=== PATIENT | female | born 1975 | race African-American/Black ===

== ENCOUNTER 2018-03-13 10:54 | Inpatient (IN) | payer OTHER ==
[2018-03-13 11:51] VITALS: BMI 23.0
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
[2018-03-13] MEDS ORDERED: IBUPROFEN 400 MG TABLET (FP) PO PRN (14:31)
[2018-03-13] MEDS ORDERED: MAG HYDROX/AL HYDROX/SIMETH 30 ML UNIT-DOSE CUP PO PRN (14:31)
[2018-03-13] MEDS ORDERED: MENTHOL/PHENOL 1 EACH UD MM PRN (14:31)
[2018-03-13] MEDS ORDERED: chlordiazePOXIDE HCL 25 MG CAPSULE PO PRN (14:31)
[2018-03-13] MEDS ORDERED: guaiFENesin/D-METHORPHAN HB 10 ML UNIT-DOSE CUPS PO PRN (14:31)
[2018-03-13] MEDS ORDERED: MAGNESIUM CITRATE 300 ML BOTTLE PO PRN (14:31)
[2018-03-13] MEDS ORDERED: LOPERAMIDE HCL 2 MG CAPSULE PO PRN (14:31)
[2018-03-13] MEDS ORDERED: P-EPHED 60MG/TRIPROLIDI 2.5MG TABLET PO PRN (14:31)
[2018-03-13] MEDS ORDERED: MAGNESIUM HYDROX 2400MG/30ML ORAL SUSPENSION 30 ML CUP PO PRN (14:31)
[2018-03-13] MEDS ORDERED: ACETAMINOPHEN 325 MG TABLET (FP) PO PRN (14:31)
[2018-03-13] MEDS ORDERED: ALBUTEROL SO4 8 GM HFA INHALER IH PRN (14:37)
[2018-03-13] MEDS ORDERED: METHADONE HCL 10 MG TABLET (FOR DETOX USE ONLY) PO ONE ×2 (14:55→23:00)
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
[2018-03-13] MEDS: ESCITALOPRAM OXALATE 20 MG TABLET (FP) PO SCH (16:11)
[2018-03-13 22:16] LABS: URINE APPEARANCE CLOUDY; URINE BILIRUBIN NEGATIVE (<2.0 mg/dL); URINE COLOR AMBER; URINE GLUCOSE (UA) NEGATIVE (NEGATIVE); URINE KETONE NEGATIVE (NEGATIVE); URINE LEUK ESTERASE NEGATIVE (NEGATIVE); URINE NITRITE NEGATIVE (NEGATIVE); URINE PROTEIN 1+ (NEGATIVE)
[2018-03-13] MEDS: THIAMINE HCL 100 MG TABLET (FP) PO SCH (22:21)
[2018-03-13] MEDS: LISINOPRIL 10 MG TABLET (FP) PO SCH (22:21)
[2018-03-13] MEDS: chlordiazePOXIDE HCL 25 MG CAPSULE PO SCH (22:21)
[2018-03-13 23:03] LABS: CALCIUM OXALATE CRYSTALS MANY /hpf (NONE SEEN); EPI CELLS FEW /HPF (FEW); URINE BACTERIA RARE /hpf (NONE SEEN); URINE HYALINE CAST 8 /lpf; URINE MUCUS MANY
[2018-03-14] MEDS: chlordiazePOXIDE HCL 25 MG CAPSULE PO SCH ×4 (05:25→22:38)
[2018-03-14] MEDS ORDERED: METHADONE HCL 10 MG TABLET (FOR DETOX USE ONLY) PO SCH (10:00)
[2018-03-14 10:10] LABS: HEMATOCRIT 39.8 % (32.4-45.2); HEMOGLOBIN 13.1 GM/dL (10.7-15.3); MCHC 32.9 g/dl (32.0-36.0); MEAN PLT VOLUME 9.5 fl (7.5-11.1); PLATELET COUNT 317 K/MM3 (134-434); RBC 4.68 M/mm3 (3.60-5.2); RDW 14.9 % (11.6-15.6); WHITE BLOOD COUNT 6.1 K/mm3 (4.0-10.0)
[2018-03-14 10:24] LABS: ALBUMIN 3.4 g/dl (3.4-5.0); ALK PHOS 98 U/L (45-117); ANION GAP 7 MMOL/L (8-16); BILIRUBIN,TOTAL 0.3 mg/dL (0.2-1); BLOOD UREA NITROGEN 12 mg/dL (7-18); CHLORIDE 103 mmol/L (98-107); CO2 30 mmol/L (21-32); CREATININE 0.7 mg/dL (0.55-1.3); GLUCOSE,RANDOM 84 mg/dL (74-106); POTASSIUM 3.9 mmol/L (3.5-5.1); SGOT/AST 16 U/L (15-37); SGPT/ALT 29 U/L (13-61); SODIUM 140 mmol/L (136-145); TOT PROT 7.1 g/dl (6.4-8.2)
[2018-03-14] MEDS: ESCITALOPRAM OXALATE 20 MG TABLET (FP) PO SCH (10:28)
[2018-03-14] MEDS: PRENATAL VITAMINS W/ FOLIC ACID TABLET (FP) PO SCH (10:28)
[2018-03-14] MEDS: LISINOPRIL 10 MG TABLET (FP) PO SCH ×2 (10:30→22:38)
--- NOTE | 2018-03-14 11:33 | PN ---
[facility] CIWA - CIWA Score Nausea/Vomitin-No Nausea/No Vomiting Muscle Tremors: 4-Moderate,w/Arms Extend Anxiety: 3 Agitation: 3 Paroxysmal Sweats: 2 Orientation: 0-Oriented Tacttile Disturbances: 0-None Auditory Disturbances: 0-None Visual Disturbances: 0-None Headache: 0-None Present CIWA-Ar Total Score: 12 BHS COWS - Scale Resting Pulse: 2= SD 101-120 Sweatin=Flushed/Facial Moisture Restless Observation: 1= Difficult to Sit Still Pupil Size: 0= Normal to Room Light Bone or Joint Aches: 2= Severe Diffuse Aches Runny Nose/ Eye Tearin= Runny Nose/Eyes GI Upset > 30mins: 0= None Tremor Observation of Outstretched Hands: 2= Slight Tremor Visible Yawning Observation: 2= >3x During Session Anxiety or Irritability: 2=Irritable/Anxious Goose Flesh Skin: 0=Smooth Skin COWS Score: 15 [facility] Progress Note (SOAP) Subjective: shakes sweats irritable creepy crawling on her skin muscle aches headache Objective: 03/14/18 11:37 Vital Signs Temperature 98.4 F 03/14/18 09:46 Pulse Rate 104 H 03/14/18 09:46 Respiratory Rate 20 03/14/18 09:46 Blood Pressure 96/66 03/14/18 09:46 O2 Sat by Pulse Oximetry (%) Laboratory Tests 03/13/18 03/14/18 03/14/18 20:51 06:00 06:00 WBC 6.1 RBC 4.68 Hgb 13.1 Hct 39.8 MCV 85.0 MCH 28.0 MCHC 32.9 RDW 14.9 Plt Count 317 MPV 9.5 Sodium 140 Potassium 3.9 Chloride 103 Carbon Dioxide 30 Anion Gap 7 L BUN 12 Creatinine 0.7 Creat Clearance w eGFR > 60 Random Glucose 84 Calcium 9.0 Total Bilirubin 0.3 AST 16 ALT 29 Alkaline Phosphatase 98 Total Protein 7.1 Albumin 3.4 Urine Color Aline Urine Appearance Cloudy Urine pH 5.0 Ur Specific [place] 1.030 Urine Protein 1+ H Urine Glucose (UA) Negative Urine Ketones Negative Urine Blood Negative Urine Nitrite Negative Urine Bilirubin Negative Urine Urobilinogen 2.0 H Ur Leukocyte Esterase Negative Urine WBC (Auto) 8 Urine RBC (Auto) 1 Ur Epithelial Cells Few Calcium Oxalate Crystal Many Urine Bacteria Rare Hyaline Casts 8 Urine Mucus Many RPR Titer 03/14/18 06:00 WBC RBC Hgb Hct MCV MCH MCHC RDW Plt Count MPV Sodium Potassium Chloride Carbon Dioxide Anion Gap BUN Creatinine Creat Clearance w eGFR Random Glucose Calcium Total Bilirubin AST ALT Alkaline Phosphatase Total Protein Albumin Urine Color Urine Appearance Urine pH Ur Specific [place] Urine Protein Urine Glucose (UA) Urine Ketones Urine Blood Urine Nitrite Urine Bilirubin Urine Urobilinogen Ur Leukocyte Esterase Urine WBC (Auto) Urine RBC (Auto) Ur Epithelial Cells Calcium Oxalate Crystal Urine Bacteria Hyaline Casts Urine Mucus RPR Titer Nonreactive aaox3 ambulating no acute distress Assessment: 03/14/18 11:39 withdrawal sx Plan: continue detox increase fluids
[2018-03-14] MEDS: hydrOXYzine PAMOATE 25 MG CAPSULE (FP) PO PRN ×2 (12:43→22:38)
--- NOTE | 2018-03-14 13:18 | EKG ---
Test Reason : Blood Pressure : / mmHG Vent. Rate : 078 BPM Atrial Rate : 078 BPM P-R Int : 142 ms QRS Dur : 086 ms QT Int : 400 ms P-R-T Axes : 059 060 069 degrees QTc Int : 456 ms NORMAL SINUS RHYTHM WITH SINUS ARRHYTHMIA NORMAL ECG NO PREVIOUS ECGS AVAILABLE Confirmed by MD MODESTO, CORY ([id number]) on 03/14/2018 1:17:58 PM Referred By: Confirmed By:CORY SALVADOR MD
[2018-03-14] MEDS: THIAMINE HCL 100 MG TABLET (FP) PO SCH (22:37)
[2018-03-14] MEDS: MELATONIN 5 MG TABLETS PO PRN (22:38)
[2018-03-15] MEDS: chlordiazePOXIDE HCL 25 MG CAPSULE PO SCH ×3 (06:02→17:25)
[2018-03-15] MEDS: hydrOXYzine PAMOATE 25 MG CAPSULE (FP) PO PRN ×3 (08:59→23:23)
[2018-03-15] MEDS: LISINOPRIL 10 MG TABLET (FP) PO SCH ×2 (10:25→23:19)
[2018-03-15] MEDS: ESCITALOPRAM OXALATE 20 MG TABLET (FP) PO SCH (10:25)
[2018-03-15] MEDS: PRENATAL VITAMINS W/ FOLIC ACID TABLET (FP) PO SCH (10:25)
[2018-03-15] MEDS: METHADONE HCL 5 MG TABLET (FOR DETOX USE ONLY) PO SCH (10:25)
--- NOTE | 2018-03-15 10:56 | PN ---
[facility] CIWA - CIWA Score Nausea/Vomitin-No Nausea/No Vomiting Muscle Tremors: 3 Anxiety: 3 Agitation: 3 Paroxysmal Sweats: 3 Orientation: 0-Oriented Tacttile Disturbances: 0-None Auditory Disturbances: 0-None Visual Disturbances: 0-None Headache: 0-None Present CIWA-Ar Total Score: 12 BHS COWS - Scale Resting Pulse: 1= [place] 81-100 Sweatin= Chills/Flushing Restless Observation: 0= Sits Still Pupil Size: 0= Normal to Room Light Bone or Joint Aches: 2= Severe Diffuse Aches Runny Nose/ Eye Tearin= Nasal Congestion GI Upset > 30mins: 0= None Tremor Observation of Outstretched Hands: 2= Slight Tremor Visible Yawning Observation: 2= >3x During Session Anxiety or Irritability: 2=Irritable/Anxious Goose Flesh Skin: 0=Smooth Skin COWS Score: 11 S Progress Note (SOAP) Subjective: anxiety sweats interrupted sleep agitation Objective: 03/15/18 10:54 Vital Signs Temperature 98.2 F 03/15/18 10:14 Pulse Rate 90 03/15/18 10:14 Respiratory Rate 16 03/15/18 10:14 Blood Pressure 95/69 03/15/18 10:14 O2 Sat by Pulse Oximetry (%) Laboratory Tests 03/13/18 03/14/18 03/14/18 20:51 06:00 06:00 WBC 6.1 RBC 4.68 Hgb 13.1 Hct 39.8 MCV 85.0 MCH 28.0 MCHC 32.9 RDW 14.9 Plt Count 317 MPV 9.5 Sodium 140 Potassium 3.9 Chloride 103 Carbon Dioxide 30 Anion Gap 7 L BUN 12 Creatinine 0.7 Creat Clearance w eGFR > 60 Random Glucose 84 Calcium 9.0 Total Bilirubin 0.3 AST 16 ALT 29 Alkaline Phosphatase 98 Total Protein 7.1 Albumin 3.4 Urine Color Aline Urine Appearance Cloudy Urine pH 5.0 Ur Specific [place] 1.030 Urine Protein 1+ H Urine Glucose (UA) Negative Urine Ketones Negative Urine Blood Negative Urine Nitrite Negative Urine Bilirubin Negative Urine Urobilinogen 2.0 H Ur Leukocyte Esterase Negative Urine WBC (Auto) 8 Urine RBC (Auto) 1 Ur Epithelial Cells Few Calcium Oxalate Crystal Many Urine Bacteria Rare Hyaline Casts 8 Urine Mucus Many RPR Titer 03/14/18 06:00 WBC RBC Hgb Hct MCV MCH MCHC RDW Plt Count MPV Sodium Potassium Chloride Carbon Dioxide Anion Gap BUN Creatinine Creat Clearance w eGFR Random Glucose Calcium Total Bilirubin AST ALT Alkaline Phosphatase Total Protein Albumin Urine Color Urine Appearance Urine pH Ur Specific [place] Urine Protein Urine Glucose (UA) Urine Ketones Urine Blood Urine Nitrite Urine Bilirubin Urine Urobilinogen Ur Leukocyte Esterase Urine WBC (Auto) Urine RBC (Auto) Ur Epithelial Cells Calcium Oxalate Crystal Urine Bacteria Hyaline Casts Urine Mucus RPR Titer Nonreactive aaox3 ambulating no acute distress Assessment: 03/15/18 10:55 withdrawal sx Plan: continue detox increase fluids
[2018-03-15] MEDS: NICOTINE POLACRILEX 2 MG GUM BUC PRN (11:38)
[2018-03-15] MEDS: THIAMINE HCL 100 MG TABLET (FP) PO SCH (23:19)
[2018-03-15] MEDS: MELATONIN 5 MG TABLETS PO PRN (23:20)
[2018-03-15] MEDS: chlordiazePOXIDE 5 MG CAPSULE PO SCH (23:20)
[2018-03-16] MEDS: chlordiazePOXIDE 5 MG CAPSULE PO SCH ×3 (05:39→17:46)
[2018-03-16] MEDS ORDERED: FLUCONAZOLE 50 MG TABLET PO ONE (09:07)
[2018-03-16] MEDS: LISINOPRIL 10 MG TABLET (FP) PO SCH ×2 (10:48→22:11)
[2018-03-16] MEDS: METHADONE HCL 5 MG TABLET (FOR DETOX USE ONLY) PO SCH (10:48)
[2018-03-16] MEDS: PRENATAL VITAMINS W/ FOLIC ACID TABLET (FP) PO SCH (10:48)
[2018-03-16] MEDS: ESCITALOPRAM OXALATE 20 MG TABLET (FP) PO SCH (10:48)
[2018-03-16] MEDS: NICOTINE POLACRILEX 2 MG GUM BUC PRN (10:51)
--- NOTE | 2018-03-16 11:30 | PN ---
[facility] Progress Note (SOAP) Subjective: yeast infection sweats interrupted sleep body aches stomach cramping constipation Objective: 03/16/18 11:29 Vital Signs Temperature 96.6 F L 03/16/18 08:19 Pulse Rate 87 03/16/18 08:19 Respiratory Rate 16 03/16/18 08:19 Blood Pressure 86/63 L 03/16/18 08:19 O2 Sat by Pulse Oximetry (%) Laboratory Tests 03/13/18 03/14/18 03/14/18 20:51 06:00 06:00 WBC 6.1 RBC 4.68 Hgb 13.1 Hct 39.8 MCV 85.0 MCH 28.0 MCHC 32.9 RDW 14.9 Plt Count 317 MPV 9.5 Sodium 140 Potassium 3.9 Chloride 103 Carbon Dioxide 30 Anion Gap 7 L BUN 12 Creatinine 0.7 Creat Clearance w eGFR > 60 Random Glucose 84 Calcium 9.0 Total Bilirubin 0.3 AST 16 ALT 29 Alkaline Phosphatase 98 Total Protein 7.1 Albumin 3.4 Urine Color Aline Urine Appearance Cloudy Urine pH 5.0 Ur Specific [place] 1.030 Urine Protein 1+ H Urine Glucose (UA) Negative Urine Ketones Negative Urine Blood Negative Urine Nitrite Negative Urine Bilirubin Negative Urine Urobilinogen 2.0 H Ur Leukocyte Esterase Negative Urine WBC (Auto) 8 Urine RBC (Auto) 1 Ur Epithelial Cells Few Calcium Oxalate Crystal Many Urine Bacteria Rare Hyaline Casts 8 Urine Mucus Many RPR Titer 03/14/18 06:00 WBC RBC Hgb Hct MCV MCH MCHC RDW Plt Count MPV Sodium Potassium Chloride Carbon Dioxide Anion Gap BUN Creatinine Creat Clearance w eGFR Random Glucose Calcium Total Bilirubin AST ALT Alkaline Phosphatase Total Protein Albumin Urine Color Urine Appearance Urine pH Ur Specific [place] Urine Protein Urine Glucose (UA) Urine Ketones Urine Blood Urine Nitrite Urine Bilirubin Urine Urobilinogen Ur Leukocyte Esterase Urine WBC (Auto) Urine RBC (Auto) Ur Epithelial Cells Calcium Oxalate Crystal Urine Bacteria Hyaline Casts Urine Mucus RPR Titer Nonreactive aaox3 ambulating no acute distress Assessment: 03/16/18 11:29 withdrawal sx Plan: continue detox increase fluids diflucan 150mg x 1 dose miconazole vaginal cream ordered
[2018-03-16] MEDS: hydrOXYzine PAMOATE 25 MG CAPSULE (FP) PO PRN ×2 (14:22→21:09)
[2018-03-16] MEDS: chlordiazePOXIDE HCL 10 MG CAPSULE PO SCH (22:10)
[2018-03-16] MEDS: MELATONIN 5 MG TABLETS PO PRN (22:10)
[2018-03-16] MEDS: THIAMINE HCL 100 MG TABLET (FP) PO SCH (22:11)
[2018-03-16] MEDS: MICONAZOLE NITRATE 200 MG VAGINAL SUPPOSITORY PV SCH (22:11)
[2018-03-17] MEDS: chlordiazePOXIDE HCL 10 MG CAPSULE PO SCH ×3 (05:53→17:27)
[2018-03-17] MEDS ORDERED: METHADONE HCL 10 MG TABLET (FOR DETOX USE ONLY) PO SCH (10:00)
[2018-03-17] MEDS: LISINOPRIL 10 MG TABLET (FP) PO SCH ×2 (10:09→22:23)
[2018-03-17] MEDS: PRENATAL VITAMINS W/ FOLIC ACID TABLET (FP) PO SCH (10:09)
[2018-03-17] MEDS: ESCITALOPRAM OXALATE 20 MG TABLET (FP) PO SCH (10:09)
--- NOTE | 2018-03-17 11:32 | PN ---
[facility] Progress Note (SOAP) Subjective: low back pain Objective: 03/17/18 11:31 Vital Signs Temperature 97.9 F 03/17/18 09:23 Pulse Rate 87 03/17/18 09:23 Respiratory Rate 18 03/17/18 09:23 Blood Pressure 101/60 03/17/18 09:23 O2 Sat by Pulse Oximetry (%) aaox3 ambulating no acute distress Assessment: 03/17/18 11:31 withdrawal sx Plan: continue detox lidocaine patch d/c in am
[2018-03-17] MEDS: hydrOXYzine PAMOATE 25 MG CAPSULE (FP) PO PRN ×2 (11:38→22:22)
[2018-03-17] MEDS ORDERED: LIDOCAINE 5% TOPICAL PATCH TP ONE (11:38)
[2018-03-17] MEDS ORDERED: LIDOCAINE PATCH REMOVAL MC SCH ×2 (22:00)
[2018-03-17] MEDS: THIAMINE HCL 100 MG TABLET (FP) PO SCH (22:22)
[2018-03-17] MEDS: MICONAZOLE NITRATE 200 MG VAGINAL SUPPOSITORY PV SCH (22:22)
[2018-03-17] MEDS: MELATONIN 5 MG TABLETS PO PRN (22:23)
[2018-03-17] MEDS: NICOTINE POLACRILEX 2 MG GUM BUC PRN (22:30)
[2018-03-18] MEDS ORDERED: METHADONE HCL 5 MG TABLET (FOR DETOX USE ONLY) PO SCH (06:00)
[2018-03-18] MEDS: PRENATAL VITAMINS W/ FOLIC ACID TABLET (FP) PO SCH (09:22)
[2018-03-18] MEDS: ESCITALOPRAM OXALATE 20 MG TABLET (FP) PO SCH (09:22)
[2018-03-18] MEDS: LISINOPRIL 10 MG TABLET (FP) PO SCH (09:22)
[2018-03-18] MEDS: hydrOXYzine PAMOATE 25 MG CAPSULE (FP) PO PRN (09:24)
[2018-03-18 09:47] VITALS: BP 129/58; PULSE 81; TEMP 96.9
[2018-03-18] MEDS ORDERED: LIDOCAINE 5% TOPICAL PATCH TP SCH (10:00)
--- NOTE | 2018-03-18 11:24 | PN ---
S Progress Note (SOAP) Subjective: No new complaints Objective: 03/18/18 11:23 A & O x 3 Completely dressed, in no distress Vital Signs Temperature 96.9 F L 03/18/18 09:47 Pulse Rate 81 03/18/18 09:47 Respiratory Rate 18 03/18/18 09:47 Blood Pressure 129/58 L 03/18/18 09:47 O2 Sat by Pulse Oximetry (%) Assessment: 03/18/18 11:24 detox completed Plan: For discharge
--- NOTE | 2018-03-18 11:29 | DS ---
[facility] Detox Discharge Summary Admission Date: 03/13/18 Discharge Date: 03/18/18 - History Additional Comments: Pt for discharge today after completing detox Pt going to [place] [facility] for aftercare Prescriptions sent to pt's documented pharmacy Pertinent Past History: asthma - Physical Exam Results Vital Signs: Vital Signs Temperature 96.9 F L 03/18/18 09:47 Pulse Rate 81 03/18/18 09:47 Respiratory Rate 18 03/18/18 09:47 Blood Pressure 129/58 L 03/18/18 09:47 O2 Sat by Pulse Oximetry (%) Pertinent Admission Physical Exam Findings: withdrawal sx - Treatment Hospital Course: Detox Protocol Followed, Detoxed Safely, Responded well, Discharged Condition Good, Rehab Referral Accepted Patient has Accepted a Rehab Referral to: [facility] - Medication Discharge Medications: Ambulatory Orders Escitalopram Oxalate [Lexapro -] 20 mg PO DAILY #30 tablet 03/13/18 Albuterol Sulfate Inhaler - [Ventolin HFA Inhaler -] 2 inh PO Q4H PRN #1 inhaler 03/18/18 Lisinopril 10 mg PO BID 30 Days #60 tablet 03/18/18 - Diagnosis (1) Alcohol dependence with uncomplicated withdrawal Current Visit: Yes Status: Acute (2) Alcohol related seizure Current Visit: Yes Status: Acute (3) Asthma Current Visit: Yes Status: Acute (4) Cocaine dependence Current Visit: Yes Status: Acute (5) Dehydration Current Visit: Yes Status: Acute (6) History of laparoscopic cholecystectomy Current Visit: Yes Status: Acute (7) History of tubal ligation Current Visit: Yes Status: Acute (8) Insomnia secondary to depression with anxiety Current Visit: Yes Status: Acute (9) Nicotine dependence Current Visit: Yes Status: Acute (10) Opioid dependence with withdrawal Current Visit: Yes Status: Acute (11) Weight loss Current Visit: Yes Status: Acute - AMA Did Patient Leave Against Medical Advice: No
== END 2018-03-18 10:21 | disposition home or self-care (01) | DRG 773 ==
LOC: YASAS 10:54 → Y6N 14:43
PROC: HZ2ZZZZ Detoxification Services for Substance Abuse Treatment (ICD-10-PCS; principal; 2018-03-13)
DX: F11.23 Opioid dependence with withdrawal (principal); F10.230 Alcohol dependence with withdrawal, uncomplicated; F14.20 Cocaine dependence, uncomplicated; F17.210 Nicotine dependence, cigarettes, uncomplicated; F51.05 Insomnia due to other mental disorder; G40.509 Epileptic seizures related to external causes, not intractable, without status epilepticus; E86.0 Dehydration; J45.909 Unspecified asthma, uncomplicated; R63.4 Abnormal weight loss; Z68.23 Body mass index [BMI] 23.0-23.9, adult; Z90.49 Acquired absence of other specified parts of digestive tract; Z98.51 Tubal ligation status; Z88.0 Allergy status to penicillin; Z91.013 Allergy to seafood
CPT/HCPCS: 36415; 80053; 81003; 81015; 85027; 86593; 93005; 93010